=== PATIENT | male | born 2000 | race Caucasian/White ===

== ENCOUNTER 2021-01-27 17:35 | Emergency (ER) | payer OTHER ==
[2021-01-27 17:50] VITALS: BP 152/76
[2021-01-27] MEDS ORDERED: KETOROLAC 15 MG/ML VIAL IM STA (17:57)
--- NOTE | 2021-01-27 17:58 | ED Physician Documentation ---
PD HPI ABD PAIN - Stated complaint Stated Complaint: ABD PAIN - Chief complaint Chief Complaint: Abd Pain - History obtained from History obtained from: Patient - History of Present Illness Timing - onset: Yesterday (Healthy 20-year-old gentleman developed left-sided flank and abdominal pain after eating around noon yesterday. Pain is in the mid axillary line on the left side just below the rib cage. It hurts to take a deep breath and also hurts to twist and bend. He is never had this before.) - Additional information Additional information: No urinary complaints. He did have some shortness of breath and nausea when pain was particularly severe last night but otherwise not short of breath. No recent travel, no hemoptysis, no leg pain or swelling. Review of Systems Ten Systems: 10 systems reviewed and negative Constitutional: reports: Reviewed and negative Throat: reports: Reviewed and negative Cardiac: reports: Reviewed and negative Respiratory: reports: Reviewed and negative PD PAST MEDICAL HISTORY - Present Medications Home Medications: Ambulatory Orders Medication Instructions Recorded Confirmed HYDROcod/ACETAM 5/325 [[place] 5/325] 1 - 2 tab PO Q6H PRN #15 tablet 01/27/21 Ibuprofen [Motrin] 800 mg PO Q8H PRN #30 tablet 01/27/21 - Allergies Allergies/Adverse Reactions: Allergies Allergy/AdvReac Type Severity Reaction Status Date / Time No Known Drug Allergies Allergy Verified 01/27/21 17:50 PD ED PE NORMAL - Vitals Vital signs reviewed: Yes - General General: Alert and oriented X 3, No acute distress - HEENT HEENT: PERRL, EOMI - Neck Neck: Supple, no meningeal sign, No bony TTP - Cardiac Cardiac: RRR, No murmur - Respiratory Respiratory: No respiratory distress, Clear bilaterally - Abdomen Abdomen: Non tender - Back Back: No spinal TTP, Other (Some tenderness over the right flank, no shingles rash, no tenderness of the ribs.) - Extremities Extremities: No edema, No calf tenderness / cord - Neuro Neuro: Alert and oriented X 3, Normal speech Results - Vitals Vitals: Vital Signs - 24 hr 01/27/21 17:47 Temperature 37.3 C Heart Rate 99 Respiratory 15 Rate Blood Pressure 152/76 H O2 Saturation 98 - Labs Labs: Laboratory Tests 01/27/21 01/27/21 01/27/21 18:02 18:02 18:02 WBC 14.4 H RBC 4.85 Hgb 14.8 Hct 43.8 MCV 90.3 MCH 30.5 MCHC 33.8 RDW 12.4 Plt Count 352 MPV 9.7 Neut # (Auto) 10.3 H Lymph # (Auto) 2.7 Woods # (Auto) 1.0 Eos # (Auto) 0.1 Baso # (Auto) 0.1 Absolute Nucleated RBC 0.00 Nucleated RBC % 0.0 Sodium 140 Potassium 4.2 Chloride 101 Carbon Dioxide 29 Anion Gap 10.0 BUN 14 Creatinine 0.9 Estimated GFR (MDRD) 108 Glucose 94 Calcium 10.2 Total Bilirubin 1.1 H AST 24 ALT 35 Alkaline Phosphatase 52 Total Protein 8.2 Albumin 4.5 Globulin 3.7 Albumin/Globulin Ratio 1.2 Lipase 23 Urine Color YELLOW Urine Clarity CLEAR Urine pH 7.5 Ur Specific [place] 1.020 Urine Protein NEGATIVE Urine Glucose (UA) NEGATIVE Urine Ketones NEGATIVE Urine Occult Blood NEGATIVE Urine Nitrite NEGATIVE Urine Bilirubin NEGATIVE Urine Urobilinogen 0.2 (NORMAL) Ur Leukocyte Esterase NEGATIVE Ur Microscopic Review NOT INDICATED Urine Culture Comments NOT INDICATED PD MEDICAL DECISION MAKING - ED course ED course: 20-year-old gentleman presents with acute right flank pain, seems muscular but imaging done suggestive of small distal left ureteral stone. Pain-free after Toradol. I am prescribing a short course of short-acting opioid pain medication for this patient. 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 I have discussed that the opioids are for short term therapy only, and will not be refilled from the ED. Departure - Departure Disposition: 01 Home, Self Care Clinical Impression: Renal colic on left side Condition: Good Record reviewed to determine appropriate education?: Yes Instructions: ED Stone Renal W Colic Prescriptions: Ibuprofen [Motrin] 800 mg PO Q8H PRN #30 tablet PRN Reason: PAIN &/OR FEVER HYDROcod/ACETAM 5/325 [[place] 5/325] 1 - 2 tab PO Q6H PRN #15 tablet PRN Reason: Pain Comments: You have a 2 mm kidney stone, it is quite small and should pass without issue. Return if pain is uncontrolled or for other new or worsening symptoms. Follow- up with your doctor. I am prescribing a short course of narcotic pain medication for you. These are potentially dangerous and addictive medications that should be used carefully. These medications may constipate you. Take an [id number] stool softener (docusate) twice daily with plenty of water while taking these medications. If you go 24 hours without a bowel movement, take [id number] miralax, per package instructions. Do not drink or drive while taking these medications. If you received narcotic or sedating medications while in the emergency department, do not drive for 24 hours. Store this medication in a safe, secure place and out of reach of children. It is a violation of federal law to give or sell this medication to another person or to use in a manner other than prescribed. The ED will not refill narcotic prescriptions, including prescriptions lost or stolen. To dispose of unwanted medications: 1. [facility] at [address] in [place] has a medication drop box. They accept prescription medications (in pill form) Thursday through Thursday 9:00 a.m. to 5:00 p.m. 2. [facility] accepts prescription medications (in pill form only) for disposal year round. Call for more information. 3. Contact the [facility] for the next [facility] sponsored prescription drug collection event. , [phone], or [phone]; Note that many narcotic pain relievers also contain Tylenol/acetaminophen. Please ensure that your total dose of acetaminophen from all sources does not exceed 3 g (3000 mg) per day.
[2021-01-27 18:13] LABS: BASOPHILS # (AUTO) 0.1 10^3/uL (0.0-0.1); BASOPHILS % (AUTO) 0.5 %; EOSINOPHILS # (AUTO) 0.1 10^3/uL (0.0-0.7); HCT - HEMATOCRIT 43.8 % (42.0-52.0); HGB - HEMOGLOBIN 14.8 g/dL (14.0-18.0); LYMPHOCYTES # (AUTO) 2.7 10^3/uL (1.5-3.5); MEAN CORPUSCULAR HEMOGLOBIN 30.5 pg (27.0-31.0); MEAN CORPUSCULAR HGB CONC 33.8 g/dL (32.0-36.0); MEAN CORPUSCULAR VOLUME 90.3 fL (80.0-94.0); MEAN PLATELET VOLUME 9.7 fL (7.4-11.4); MONOCYTES % (AUTO) 7.2 %; NEUTROPHILS # (AUTO) 10.3 10^3/uL (1.5-6.6); PLT - PLATELET COUNT 352 10^3/uL (130-450); RED BLOOD COUNT 4.85 10^6/uL (4.70-6.10); RED CELL DISTRIBUTION WIDTH 12.4 % (12.0-15.0); WHITE BLOOD COUNT 14.4 x10^3/uL (4.8-10.8)
[2021-01-27 18:19] LABS: BILIRUBIN,URINE NEGATIVE (NEGATIVE); GLUCOSE, URINE (UA) NEGATIVE (NEGATIVE); KETONES,URINE (UA) NEGATIVE (NEGATIVE); LEUKOCYTE ESTERASE, URINE NEGATIVE (NEGATIVE); NITRITE,URINE NEGATIVE (NEGATIVE); OCCULT BLOOD,URINE NEGATIVE (NEGATIVE); PH,URINE 7.5 PH (5.0-7.5); PROTEIN,URINE NEGATIVE (NEGATIVE); UROBILINOGEN,URINE 0.2 (NORMAL) E.U./dL (NORMAL)
[2021-01-27 18:20] LABS: CLARITY,URINE CLEAR (CLEAR)
[2021-01-27 18:26] LABS: ALBUMIN 4.5 g/dL (3.2-5.5); ALBUMIN/GLOBULIN RATIO 1.2 (1.0-2.2); BILIRUBIN,TOTAL 1.1 mg/dL (0.2-1.0); CALCIUM 10.2 mg/dL (8.5-10.3); CREATININE 0.9 mg/dL (0.6-1.2); POTASSIUM 4.2 mmol/L (3.5-5.0); TOTAL PROTEIN 8.2 g/dL (6.7-8.2)
[2021-01-27] MEDS ORDERED: KETOROLAC 15 MG/ML VIAL IVP STA (18:26)
--- NOTE | 2021-01-27 19:15 | CT Report ---
PROCEDURE: Abdomen/Pelvis WO INDICATIONS: Left flank pain. TECHNIQUE: Noncontrast 5 mm thick sections acquired from the diaphragms to the symphysis. 5 mm coronal and sagi ttal reformats were then performed. For radiation dose reduction, the following was used: automated exposure control, adjustment of mA and/or kV according to patient size. COMPARISON: None. FINDINGS: Image quality: Excellent. ABDOMEN: Lung bases: Lingular scars and atelectasis. Heart size is normal. Small hiatal hernia. Solid organs: Liver and spleen are normal in size. Gallbladder is normal. Pancreas is normal in co ntours. No adrenal nodules. Kidneys are normal in size, without hydronephrosis or nephrolithiasis. Peritoneum and bowel: Unenhanced bowel loops demonstrate normal wall thickness and caliber. Normal appendix. No free fluid or air. Nodes and vessels: No retroperitoneal or mesenteric adenopathy by size criteria. Aorta and inferior vena cava are normal in caliber. Miscellaneous: No ventral hernias. PELVIS: Genitourinary: There is a 2 mm hypodensity in the left pelvis along the course of the distal left ur eter near the left ureterovesical junction, suspicious for a small nonobstructive stone. Bladder is c ontracted. Miscellaneous: No inguinal hernias or adenopathy. Bones: No suspicious bony lesions. No vertebral body compression fractures. IMPRESSION: 1. Possible 2 mm non-obstructive stone in the distal left ureter near the left UVJ. No hydronephrosis . Reviewed by: Margareth Guardado MD on 01/27/2021 7:14 PM PDT Approved by: Margareth Guardado MD on 01/27/2021 7:14 PM PDT Station ID: [id number]
[2021-01-27] MEDS ORDERED: HYDROcod/ACET 5/325 Prepack 4 PO STA (19:23)
== END 2021-01-27 19:35 | disposition home or self-care (01) ==
LOC: ED 17:35
DX: N23 Unspecified renal colic (principal)
CPT/HCPCS: 36415; 80053; 81001; 81003; 83690; 85025; 87086; 96374; 99284